=== PATIENT | male | born 1955 | race Caucasian/White ===

== ENCOUNTER 2017-02-24 12:35 | Outpatient (CLI) | payer MEDICARE ==
--- NOTE | 2017-02-24 20:21 | RAD ---
CHEST TWO VIEWS: 02/24/2017 No recent film was available for comparison. There is some diffuse interstitial prominence throughout the lungs which is not new. I can see it on a 2016 thoracic spine film. There is a little more focal density in the left base, however, consist ent with the history of pneumonia. This probably represents a minimal residual from that infection. The right lung is relatively clear. The heart is normal in size. There are no congestive changes o r pleural effusions. IMPRESSION: 1. Mild diffuse interstitial prominence that is presumably fibrosis and longstanding. 2. Minimal left lower lobe haziness, presumably the sequelae of a recent pneumonia. POS: HOME
== END 2017-02-24 12:36 | disposition home or self-care (01) ==
LOC: BURRAD 12:35
PROVIDERS: ATTEND Family Medicine
DX: J16.8 Pneumonia due to other specified infectious organisms (principal); R91.8 Other nonspecific abnormal finding of lung field
CPT/HCPCS: 71020

== ENCOUNTER 2017-04-28 16:28 | Emergency (ER) | payer MEDICARE, OTHER ==
--- NOTE | 2017-04-28 21:07 | RAD ---
LEFT HIP TWO VIEWS: History: 04-28-17 FINDINGS: No fracture is evident. The joint space is normal and the articular surfaces are smooth. The adjacent pubic ring appears intact. IMPRESSION: No acute bony finding. POS: HOME
== END 2017-04-28 17:14 | disposition home or self-care (01) ==
LOC: BURERS 16:28
DX: S76.012A Strain of muscle, fascia and tendon of left hip, initial encounter (principal); K74.60 Unspecified cirrhosis of liver; J44.9 Chronic obstructive pulmonary disease, unspecified; Z79.899 Other long term (current) drug therapy; X58.XXXA Exposure to other specified factors, initial encounter